=== PATIENT | female | born 1960 | race Caucasian/White ===

== ENCOUNTER → 2024-10-03 15:15 | Outpatient (REF) | payer BC, SELFPAY | LOC: RAD 15:15 | PROVIDERS: ATTENDING PHYSICIAN Hospitalist | DX: E04.2 Nontoxic multinodular goiter (principal) | CPT/HCPCS: 76536 ==

== ENCOUNTER → 2024-11-08 16:03 | Outpatient (REF) | payer BC, SELFPAY | LOC: WDC 16:03 | PROVIDERS: ATTENDING PHYSICIAN Hospitalist | DX: Z12.31 Encounter for screening mammogram for malignant neoplasm of breast (principal) | CPT/HCPCS: 77063; 77067 ==